=== PATIENT | female | born 1965 | race Caucasian/White ===

== ENCOUNTER 2017-03-17 17:19 | Emergency (ER) | payer OTHER ==
[2017-03-17 17:24] VITALS: BP 137/93; PULSE 76; TEMP 97.9; BMI 35.8
[2017-03-17] MEDS ORDERED: IBUPROFEN 600 MG TABLET (FP) PO ONE ×2 (18:05→18:08)
--- NOTE | 2017-03-17 18:10 | PDOC ---
History of Present Illness - General Chief Complaint: Sore Throat Stated Complaint: SORE THROAT Time Seen by Provider: 03/17/17 17:40 History Source: Patient, Family Exam Limitations: No Limitations - History of Present Illness Initial Comments: 03/17/17 18:05 C/o pain and swelliing to lips/ throat with general malaise and low-grade fevers 2 days. States has sore throat and swelling neck. Denies cough, runny nose, no one at home is sick. Suffers from cold sores but has not had one recently. 03/17/17 18:06 03/17/17 18:23 03/17/17 18:35 Timing/Duration: unsure Severity: moderate Associated Symptoms: reports: fever/chills, loss of appetite, malaise, rash. denies: cough, headaches Past History - Travel Traveled outside of the country in the last 30 days: No Close contact w/someone who was outside of country & ill: No - Past Medical History Allergies/Adverse Reactions: Allergies Allergy/AdvReac Type Severity Reaction Status Date / Time No Known Allergies Allergy Verified 03/17/17 17:21 Home Medications: Ambulatory Orders Acyclovir [Zovirax -] 800 mg PO 5XD #35 tablet 03/17/17 Other medical history: denies. - Surgical History Abdominal Surgery: Yes (GASTRIC BYPASS.) - Psycho/Social/Smoking Cessation Hx Anxiety: No Suicidal Ideation: No Smoking History: Never smoked Hx Alcohol Use: No Drug/Substance Use Hx: No Substance Use Type: None Review of Systems - Review of Systems Able to Perform ROS?: Yes Is the patient limited [place]er proficient: Yes Constitutional: Yes: Symptoms Reported, See HPI, Fever, Malaise HEENTM: Yes: Symptoms Reported, Throat Pain, Mouth Pain, Dental Problems, Difficulty Swallowing (due to oral lesions ), Mouth Swelling. No: Throat Swelling Neurological: Yes: Symptoms reported *Physical Exam - Vital Signs Last Vital Signs Temp Pulse Resp BP Pulse Ox 97.9 F 76 18 137/93 98 03/17/17 17:21 03/17/17 17:21 03/17/17 17:21 03/17/17 17:21 03/17/17 17:21 - Physical Exam General Appearance: Yes: Nourished, Appropriately Dressed, Apparent Distress, Mild Distress HEENT: positive: SHAVONNE, TMs Normal, Pharynx Normal (no redness / swelling ), Rhinorrhea, Other (lips with ulcerations/ to gingival surfaces / no inner oral lesions/ ). negative: Pharyngeal Erythema Neck: positive: Tender, Supple, Lymphadenopathy (R), Lymphadenopathy (L) ( submandibular nodes. ) Respiratory/Chest: positive: Lungs Clear, Normal Breath Sounds Cardiovascular: positive: Regular Rate Gastrointestinal/Abdominal: positive: Normal Bowel Sounds, Soft. negative: Tender Musculoskeletal: positive: CVA Tenderness. 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, Fully Oriented, Alert, Normal Mood/ Affect, Normal Response, Motor Strength 5/5 *DC/Admit/Observation/Transfer Diagnosis at time of Disposition: Aphthous ulcer of mouth - Discharge Dispostion Disposition: HOME Condition at time of disposition: Stable Admit: No - Prescriptions Prescriptions: Acyclovir [Zovirax -] 800 mg PO 5XD #35 tablet - Referrals Referrals: Jamila Jolley MD [Primary Care Provider] - - Patient Instructions Printed Discharge Instructions: DI for Cold Sores Additional Instructions: rest, Lots of fluids Keep mouth clean and dry/ rinse after each meal May use ORAGEL for pain on lesions to lips Acyclovir 1 800mg tablet 5 times a day for 1 week. Continue tylenol or Motrion for pain relief See PMD as needed - Post Discharge Activity Work/School Note: Back to Work
== END 2017-03-17 18:24 | disposition home or self-care (01) ==
LOC: SUPCPDRO 17:19 → JERFT 17:19
DX: K12.0 Recurrent oral aphthae (principal)
CPT/HCPCS: 99281-25

== ENCOUNTER 2019-11-11 11:43 | Day surgery (SDC) | payer OTHER ==
[2019-11-10 11:20] VITALS: BMI 39.2
[2019-11-11 14:15] VITALS: BP 114/60; PULSE 68; TEMP 98
--- NOTE | 2019-11-12 15:31 | PATH ---
Surgical Pathology Report Patient Name: BL[facility]. Rec. #: [id number] /Age/Gender: 1965 (Age: 53) / F Account: [id number] Location: [facility]-ENDOSCOPY Taken: 11/11/2019 Received: 11/11/2019 Reported: 11/12/2019 Physicians: Enzo Mcnamara D.O. Specimen(s) Received A: DUODENUM NODULE B: STOMACH BODY C: DISTAL ESOPHAGUS Clinical History GERD screening Postoperative diagnosis: Hiatal hernia, gastritis Final Diagnosis A. DUODENAL NODULE, BIOPSY: POLYPOID DUODENAL MUCOSA WITH MILD CHRONIC DUODENITIS. B. DISTAL ESOPHAGUS, BIOPSY: SQUAMOUS MUCOSA WITH CHANGES OF SEVERE REFLUX TYPE ESOPHAGITIS. C. STOMACH, BODY, BIOPSY: GASTRIC BODY MUCOSA WITH MODERATE CHRONIC GASTRITIS. IMMUNOHISTOCHEMICAL STAIN FOR H. PYLORI IS NEGATIVE. Electronically Signed Marii Albarado M.D. Gross Description A. Received in formalin, labeled "duodenal nodule" is a gerard, irregular portion of soft tissue measuring 0.2 cm. in greatest dimension. The specimen is submitted in toto in one cassette. B. Received in formalin, labeled "biopsy distal esophagus" is a gerard, irregular portion of soft tissue measuring 0.3 cm. in greatest dimension. The specimen is submitted in toto in one cassette. C. Received in formalin, labeled "biopsy body of stomach" are 5 gerard, irregular portions of soft tissue ranging from 0.2-0.3 cm. in greatest dimension. The specimens are submitted in toto in one cassette. DL/11/11/2019 saudi/11/11/2019
== END 2019-11-11 14:16 | disposition home or self-care (01) ==
LOC: JASU-ENDO 11:43
PROVIDERS: ATTEND Internal Medicine Gastroenterology
PROC: 0DB58ZX Excision of Esophagus, Via Natural or Artificial Opening Endoscopic, Diagnostic (ICD-10-PCS; 2019-11-11)
PROC: 0DB98ZX Excision of Duodenum, Via Natural or Artificial Opening Endoscopic, Diagnostic (ICD-10-PCS; principal; 2019-11-11 11:45)
DX: K21.0 Gastro-esophageal reflux disease with esophagitis (principal); K44.9 Diaphragmatic hernia without obstruction or gangrene; Z98.84 Bariatric surgery status
CPT/HCPCS: 88305-TC; 88342-TC

== ENCOUNTER 2024-09-04 10:01 | Emergency (ER) | payer OTHER ==
[2024-09-04 10:07] VITALS: BP 159/76; PULSE 67; RESP 16; TEMP 98.4; BMI 30.8
== END 2024-09-04 12:19 | disposition home or self-care (01) ==
LOC: JER 10:01
DX: E11.65 Type 2 diabetes mellitus with hyperglycemia (principal); Z79.84 Long term (current) use of oral hypoglycemic drugs; H53.8 Other visual disturbances
CPT/HCPCS: 82962; 99283-25